=== PATIENT | female | born 1945 | race Caucasian/White ===

== ENCOUNTER 2016-10-09 18:43 | Emergency (ER) | payer OTHER, MEDICARE ==
[~2016-10-09] VITALS: Ht 149.9 cm; Wt 77.0 kg
[~2016-10-09 18:43] MED LIST: ASCORBIC ACID500 M3 PO; BENTYL20 MG PO; CALCIUM 500 MG1 EACH PO; DULCOLAX5 MG PO; TAMIFLU75 MG PO
[2016-10-09 20:56] VITALS: BP 135/83
== END 2016-10-09 20:56 | disposition home or self-care (01) ==
LOC: EME 18:43
DX: M79.604 Pain in right leg (principal); Z90.710 Acquired absence of both cervix and uterus
CPT/HCPCS: 93971; 99281; 99283